=== PATIENT | male | born 1945 | race Caucasian/White ===

== ENCOUNTER 2020-04-15 12:53 | Emergency (ER) | payer BC, MEDICAID ==
[~2020-04-15] VITALS: Ht 177.8 cm; Wt 75.0 kg
[~2020-04-15 12:53] MED LIST: MULT-1239 PO
[2020-04-15 14:36] VITALS: BP 127/69
== END 2020-04-15 16:05 | disposition home or self-care (01) ==
LOC: EMS 12:53
DX: F10.10 Alcohol abuse, uncomplicated (principal); R45.851 Suicidal ideations; Z87.891 Personal history of nicotine dependence
CPT/HCPCS: Z7502